=== PATIENT | female | born 1975 ===

== ENCOUNTER 2018-02-19 11:11 | Emergency (ER) | payer SELFPAY ==
[2018-02-19 11:26] VITALS: BP 113/66; PULSE 86; RESP 16; TEMP 98.4; O2SAT 98
== END 2018-02-19 14:01 | disposition left against medical advice (07) ==
LOC: NED 11:11
DX: R23.9 Unspecified skin changes (principal); Z53.21 Procedure and treatment not carried out due to patient leaving prior to being seen by health care provider
CPT/HCPCS: 99281